=== PATIENT | female | born 1990 | race African-American/Black ===

== ENCOUNTER 2020-01-04 18:51 | Emergency (ER) | payer SELFPAY ==
[~2020-01-04] VITALS: Ht 162.6 cm; Wt 63.6 kg
[2020-01-04] MEDS ORDERED: ACETAMINOPHEN 500 MG TABLET PO ONE (22:30)
[2020-01-04 23:20] VITALS: BP 119/75
== END 2020-01-04 23:44 | disposition home or self-care (01) ==
LOC: EMS 18:53
DX: M25.561 Pain in right knee (principal)
CPT/HCPCS: 29505